=== PATIENT | female | born 1970 | race Caucasian/White ===

== ENCOUNTER 2020-12-01 11:36 | Outpatient (CLI) | payer SELFPAY ==
[2020-12-07 07:50] LABS: Kit Draw Collected
== END 2020-12-01 11:37 | disposition home or self-care (01) ==
DX: M04.9 Autoinflammatory syndrome, unspecified (principal); M06.9 Rheumatoid arthritis, unspecified; R53.83 Other fatigue; B96.81 Helicobacter pylori [H. pylori] as the cause of diseases classified elsewhere; D89.40 Mast cell activation, unspecified
CPT/HCPCS: 36415